=== PATIENT | male | born 1970 | race Caucasian/White ===

== ENCOUNTER 2023-06-02 13:40 | Emergency (ER) | payer SELFPAY ==
--- NOTE | ~2023-06-02 | XR_ITS ---
EXAMINATION: XR tibia fibula RT 2V DATE: 06/02/2023 14:00 INDICATION: Posterior right calf pain post injury TECHNIQUE: AP and lateral views of the right tibia and fibula were obtained. COMPARISON: None. FINDINGS: Lateral plate and screw fixation at the distal right fibula presumably for old healed fracture which is in essentially anatomic alignment. Medial malleolar fracture which also appears healed with a pair of fixation pins at the medial malleolus, one of which is fractured. There is a separate corticated ossicle along the medial side of the medial malleolus which could represent either heterotopic ossifi cation or a chronic nonunited fracture fragment. No acute fractures identified. There is suggestion o f mild osteoarthritis at the incompletely visualized patellofemoral articulation of the right knee. R emaining joint spaces appear relatively preserved. Small Achilles calcaneal spur. Soft tissues are un remarkable. No ankle joint effusion. IMPRESSION: 1. Old internally fixed medial and lateral malleolar fractures at the right ankle is detailed above. No acute osseous abnormality. Reviewed, dictated and finalized at location A. [facility] IMPRESSION: 1. Old internally fixed medial and lateral malleolar fractures at the right ank le is detailed above. No acute osseous abnormality.
--- NOTE | ~2023-06-02 | US_ITS ---
EXAMINATION:US venous doppler LE RT INDICATION:Right leg pain TECHNIQUE: Multiple grayscale, color flow and Doppler images of the right lower extremity deep venous systems were obtained and reviewed. COMPARISON:No prior studies for comparison. FINDINGS: The common femoral, superficial femoral and popliteal veins demonstrate normal respiratory variation, augmentation and compressibility. Color flow is also seen within the posterior tibial, pe roneal, greater saphenous and profunda veins. IMPRESSION: 1: No lower extremity deep venous thrombosis. Reviewed, dictated and finalized at location B. [employer]
[2023-06-02 13:40] VITALS: BP 161/110; PULSE 86; RESP 18; TEMP 36.9; O2SAT 96
--- NOTE | 2023-06-02 14:04 | ED.GENADULT ---
HPI - General Adult General Chief complaint: Extremity Injury, Lower Stated complaint: R calf injury Time Seen by Provider: 06/02/23 13:44 History of Present Illness HPI narrative: 53 yo M presents to ED due to right calf pain. Was helping him family member move. Was pushing a heavy object and felt a pop in his right calf. Since then, right calf is painful. Pt has history of chronic ankle pain s/p an injury in the past and has limited ROM in his right ankle. Treatments prior to arrival: NSAID Related Data Home Medications Medication Instructions Recorded Confirmed levothyroxine 150 mcg tablet 150 mcg PO DAILY 06/02/23 06/02/23 Allergies Allergy/AdvReac Type Severity Reaction Status Date / Time No Known Allergies Allergy Verified 06/02/23 14:52 Review of Systems Constitutional: Constitutional: Reports as per HPI and Reports no additional constitutional complaints Eyes: Eyes: Reports as per HPI and Reports no additional eye complaints ENT: Reports system reviewed and no additional complaints, except as documented and Reports as per HPI Cardiovascular: Cardiovascular: Reports as per HPI and Reports no additional cardiovascular complaints Respiratory: Respiratory: Reports as per HPI and Reports no additional respiratory complaints Gastrointestinal: Gastrointestinal: Reports as per HPI and Reports no additional gastrointestinal complaints Genitourinary: Genitourinary: Reports as per HPI Musculoskeletal: Musculoskeletal: Reports no additional musculoskeletal complaints and Reports as per HPI Integumentary/Breasts: Skin/Breast: Reports system reviewed and no additional complaints, except as docu and Reports as per HPI Neurologic: Reports system reviewed and no additional complaints, except as documented and Reports as per HPI Psychiatric: Psychiatric: Reports no additional psychiatric complaints and Reports as per HPI Endocrine: Endocrine: Reports no additional endocrine complaints and Reports as per HPI Hematologic/Lymphatic: Hematologic/Lymphatic: Reports no additional hematologic/lymphatic complaints and Reports as per HPI Allergic/Immunologic: Allergic/Immunologic: Reports no additional allergic/immunologic complaints and Reports as per HPI Exam Const: General: cooperative, healthy appearing, comfortable, no acute distress, well developed, alert, awake, average body habitus and well nourished Nutritional Appearance: average body habitus and well nourished Orientation/consciousness: oriented to person, oriented to place and oriented to time Limitations: no limitations HENMT: Head: normal to inspection Ears: hearing grossly normal bilaterally, external ears normal and TM's normal bilaterally Face/Nose/Sinus: Normal external nose present, Normal nares present, No nasal polyps present, Normal nasal mucous membranes and turbinates present, Normal septum present, No nasal discharge present, normal facial exam, sinuses nontender and face symmetric Face and sinus: normal facial exam, sinuses nontender and face symmetric Mouth: Yes Normal oral and palatal mucosa present, Yes lip normal, Yes tongue normal, Yes Normal salivary glands and ducts present, Yes oropharynx normal and Yes moist mucous membranes Teeth and gingiva: dentition normal and gingiva normal Throat: posterior oropharynx normal, tonsils normal and uvula midline Eyes: General: appearance normal, both eyes and all related structures Eyelids: eyelids normal Conjunctivae: conjunctivae normal Sclera: sclerae normal Cornea: corneas normal Pupils: Equal, round and reactive pupils present EOM: EOMs intact bilaterally Neck: Neck: normal visual inspection, full ROM and no lymphadenopathy Thyroid: thyroid normal Lymphatic: no lymphadenopathy noted Chest: Chest palpation & inspection: normal inspection of the chest and normal palpation of entire chest wall Resp: Effort & Inspection: normal respiratory effort and able to speak in complete sentences [facility]
[2023-06-02] MEDS: KETOROLAC 30 MG/ML VIAL (*BKC) IM (15:04)
[2023-06-02 15:22] VITALS: BP 148/98; PULSE 80; RESP 20; TEMP 36.9; O2SAT 98
== END 2023-06-02 15:24 | disposition home or self-care (01) ==
PROVIDERS: Emergency Provider Emergency Medicine
DX: S86.811A Strain of other muscle(s) and tendon(s) at lower leg level, right leg, initial encounter (principal); X50.0XXA Overexertion from strenuous movement or load, initial encounter
CPT/HCPCS: 73590; 93971; 96372; 99284; J1885